=== PATIENT | male | born 1995 | race Caucasian/White ===

== ENCOUNTER 2019-08-24 17:31 | Inpatient (IN) ==
[2019-08-24] MEDS ORDERED: 0.9 % Sodium Chloride 500 ML IVC ONE (17:49)
[2019-08-24] MEDS ORDERED: *HR* FentaNYL (PF) 100 MCG/2 ML VIAL IVP ONE (17:52)
[2019-08-24 18:34] LABS: Basophils # 0.1 K/mcL (0.0-0.2); Basophils % 0.4 %; Eosinophils # 0.4 K/mcL (0.0-0.6); Eosinophils % 2.7 %; Hematocrit 43.8 % (37.5-50.1); Hemoglobin 13.7 g/dL (12.9-16.9); Immature Granulocytes % 0.7 % (0-4); Lymphocytes # 3.1 K/mcL (0.6-4.6); Lymphocytes % 21.1 %; Mean Corpuscular HGB Conc 31.3 g/dL (31.6-35.5); Mean Corpuscular Hemoglobin 27.7 pg (28.0-33.3); Mean Corpuscular Volume 88.7 fL (83.0-100.0); Mean Platelet Volume 9.6 fL (9.4-12.4); Monocytes # 1.5 K/mcL (0.0-1.3); Neutrophils # 9.5 K/mcL (1.6-8.9); Platelet Count 345 K/mcL (140-400); Red Blood Count 4.94 M/mcL (4.19-5.50); Red Cell Distribution Width 12.3 % (11.5-14.5); Segmented Neutrophils % 65.1 %; White Blood Count 14.6 K/mcL (4.3-11.1)
[2019-08-24 18:35] LABS: Bilirubin,Urine Negative (Negative); Blood,Urine Negative (Negative); Color,Urine Yellow (Yellow); Glucose,Urine (UA) Normal (Normal); Ketones,Urine Negative (Negative); Leukocyte Esterase,Urine Negative (Negative); Nitrite,Urine Negative (Negative); Protein,Urine Negative (Neg-Trace); Specific Gravity,Urine 1.013 (1.010-1.025)
[2019-08-24 18:40] LABS: Clarity,Urine Hazy (Clear)
[2019-08-24 18:58] LABS: BUN/Creatinine Ratio 9 (6-26); Blood Urea Nitrogen 12 mg/dL (6-20); Calcium 8.9 mg/dL (8.6-10.3); Carbon Dioxide 28 mEq/L (23-29); Chloride 97 mEq/L (98-107); Creatine Kinase 86 Units/L (30-223); Glucose 103 mg/dL (70-105); Osmolality,Calculated 280 (280-300); Potassium 3.7 mEq/L (3.5-5.1); Sodium 135 mEq/L (136-145); eGFR For African Americans > 60 (> 60); eGFR For Non-African Americans > 60 (> 60)
[2019-08-24 18:59] LABS: Troponin I < 0.03 ng/mL (< 0.04)
[2019-08-24] MEDS ORDERED: 0.9 % Sodium Chloride 1,000 ML IVC STA (19:10)
[2019-08-24] MEDS ORDERED: Ibuprofen 400 MG TABLET PO ONE (19:11)
[2019-08-24] MEDS ORDERED: cefTRIAXone 1,000 MG in Water for inj. (sterile) 10 ML IVP ONE (19:46)
[2019-08-24] MEDS ORDERED: Azithromycin 500 MG in 0.9 % Sodium Chloride 250 ML IVPB ONE (19:46)
[2019-08-25] MEDS ORDERED: Naloxone 0.4 MG/ML INJ IVP PRN (04:33)
[2019-08-25 05:06] LABS: Hematocrit 43.3 % (37.5-50.1); Hemoglobin 13.3 g/dL (12.9-16.9); Mean Corpuscular HGB Conc 30.7 g/dL (31.6-35.5); Mean Corpuscular Hemoglobin 27.4 pg (28.0-33.3); Mean Corpuscular Volume 89.1 fL (83.0-100.0); Mean Platelet Volume 9.5 fL (9.4-12.4); Platelet Count 318 K/mcL (140-400); Red Blood Count 4.86 M/mcL (4.19-5.50); Red Cell Distribution Width 12.3 % (11.5-14.5); White Blood Count 13.1 K/mcL (4.3-11.1)
[2019-08-25 05:25] LABS: BUN/Creatinine Ratio 12 (6-26); Blood Urea Nitrogen 13 mg/dL (6-20); Calcium 8.6 mg/dL (8.6-10.3); Carbon Dioxide 29 mEq/L (23-29); Chloride 104 mEq/L (98-107); Glucose 99 mg/dL (70-105); Osmolality,Calculated 288 (280-300); Potassium 3.8 mEq/L (3.5-5.1); Sodium 139 mEq/L (136-145); eGFR For African Americans > 60 (> 60); eGFR For Non-African Americans > 60 (> 60)
[2019-08-25] MEDS: cefTRIAXone 1,000 MG in Water for inj. (sterile) 10 ML IVP SCH (07:42)
[2019-08-25] MEDS ORDERED: Benzonatate 100 MG CAPSULE PO PRN (12:07)
[2019-08-25] MEDS: *HR* Enoxaparin 40 MG/0.4 ML SYRINGE SQ SCH (14:17)
[2019-08-25] MEDS ORDERED: Azithromycin 500 MG in 0.9 % Sodium Chloride 250 ML IVPB SCH (21:00)
[2019-08-26] MEDS: *HR* Enoxaparin 40 MG/0.4 ML SYRINGE SQ SCH (05:45)
[2019-08-26] MEDS ORDERED: Isovue-370 500 ML BOTTLE IVP ONE (07:03)
[2019-08-26] MEDS: cefTRIAXone 1,000 MG in Water for inj. (sterile) 10 ML IVP SCH (07:50)
[2019-08-26] MEDS: Acetaminophen 325 MG TABLET PO PRN ×2 (07:50→15:54)
[2019-08-26] MEDS: 0.9 % Sodium Chloride 1,000 ML IVC SCH ×2 (07:51→20:18)
[2019-08-26 09:51] LABS: BUN/Creatinine Ratio 9 (6-26); Blood Urea Nitrogen 10 mg/dL (6-20); Calcium 8.5 mg/dL (8.6-10.3); Carbon Dioxide 27 mEq/L (23-29); Chloride 102 mEq/L (98-107); Glucose 112 mg/dL (70-105); Osmolality,Calculated 282 (280-300); Potassium 3.5 mEq/L (3.5-5.1); Sodium 136 mEq/L (136-145); eGFR For African Americans > 60 (> 60); eGFR For Non-African Americans > 60 (> 60)
[2019-08-26 12:07] LABS: Adenovirus Not Detected (Not Detect); Bordetella Pertussis Not Detected (Not Detect); Chlamydophila pneumoniae Not Detected (Not Detect); Coronavirus 229E Not Detected (Not Detect); Coronavirus HKU1 Not Detected (Not Detect); Coronavirus NL63 Not Detected (Not Detect); Coronavirus OC43 Not Detected (Not Detect); Human Metapneumovirus Not Detected (Not Detect); Human Rhinovirus/Enterovirus Not Detected (Not Detect); Influenza A Subtype 2009 H1 Not Detected (Not Detect); Influenza B Not Detected (Not Detect); Mycoplasma pneumoniae Not Detected (Not Detect); Parainfluenza Virus 1 Not Detected (Not Detect); Parainfluenza Virus 2 Not Detected (Not Detect); Parainfluenza Virus 3 Not Detected (Not Detect); Parainfluenza Virus 4 Not Detected (Not Detect); Respiratory Syncytial Virus Not Detected (Not Detect)
[2019-08-26] MEDS ORDERED: *HR* Enoxaparin 40 MG/0.4 ML SYRINGE SQ SCH (12:08)
[2019-08-26] MEDS ORDERED: Azithromycin 250 MG TABLET PO SCH (21:00)
[2019-08-27] MEDS: *HR* Enoxaparin 40 MG/0.4 ML SYRINGE SQ SCH (05:46)
[2019-08-27] MEDS: cefTRIAXone 1,000 MG in Water for inj. (sterile) 10 ML IVP SCH (09:23)
[2019-08-27] MEDS: 0.9 % Sodium Chloride 1,000 ML IVC SCH (09:33)
[2019-08-27] MEDS ORDERED: Lidocaine 1% 20 ML MDV ONE (09:51)
[2019-08-27 11:37] LABS: Total Protein,Pleural Fluid 4.4 g/dL
[2019-08-27 13:44] LABS: Appearance of Pleural Fl Bloody (Clear)
[2019-08-27 13:51] LABS: Basophils,Pleural Fluid 0 %; Monocytes,Pleural Fluid 0 %
[2019-08-27] MEDS: Piperacillin/Tazobactam 3.375 GM in 0.9 % Sodium Chloride Mini Bag 100 ML IVPB SCH (18:13)
[2019-08-28] MEDS: Piperacillin/Tazobactam 3.375 GM in 0.9 % Sodium Chloride Mini Bag 100 ML IVPB SCH ×3 (01:19→18:10)
[2019-08-28 02:02] LABS: Basophils # 0.1 K/mcL (0.0-0.2); Basophils % 0.4 %; Eosinophils # 0.3 K/mcL (0.0-0.6); Eosinophils % 2.6 %; Hematocrit 36.7 % (37.5-50.1); Immature Granulocytes % 0.5 % (0-4); Lymphocytes # 2.6 K/mcL (0.6-4.6); Lymphocytes % 21.3 %; Mean Corpuscular HGB Conc 31.1 g/dL (31.6-35.5); Mean Corpuscular Hemoglobin 27.3 pg (28.0-33.3); Monocytes # 1.1 K/mcL (0.0-1.3); Monocytes % 8.8 %; Platelet Count 358 K/mcL (140-400); Red Blood Count 4.17 M/mcL (4.19-5.50); Red Cell Distribution Width 12.4 % (11.5-14.5); Segmented Neutrophils % 66.4 %
[2019-08-28 02:03] LABS: Hemoglobin 11.4 g/dL (12.9-16.9)
[2019-08-28 02:22] LABS: BUN/Creatinine Ratio 12 (6-26); Blood Urea Nitrogen 13 mg/dL (6-20); Calcium 8.4 mg/dL (8.6-10.3); Carbon Dioxide 26 mEq/L (23-29); Chloride 105 mEq/L (98-107); Glucose 100 mg/dL (70-105); Osmolality,Calculated 284 (280-300); Sodium 137 mEq/L (136-145); eGFR For African Americans > 60 (> 60); eGFR For Non-African Americans > 60 (> 60)
[2019-08-28] MEDS: *HR* Enoxaparin 40 MG/0.4 ML SYRINGE SQ SCH (05:42)
[2019-08-28] MEDS ORDERED: *HR* Propofol 200 MG/20 ML VIAL IVP ONE ×2 (13:19→13:24)
[2019-08-28] MEDS ORDERED: *HR* Midazolam HCl 2 MG/2 ML VIAL ONE (13:19)
[2019-08-28] MEDS ORDERED: *HR* FentaNYL (PF) 100 MCG/2 ML VIAL ONE ×2 (13:19→15:02)
[2019-08-28] MEDS ORDERED: Famotidine 20 MG/2 ML VIAL ONE (14:50)
[2019-08-28] MEDS ORDERED: Acetaminophen IV 1,000 MG/100 ML INFUS..BTL ONE (14:50)
[2019-08-28] MEDS ORDERED: Pregabalin 75 MG CAPSULE PO ONE (15:40)
[2019-08-28] MEDS ORDERED: *HR* HYDROmorphone 2 MG TABLET PO PRN (15:40)
[2019-08-28] MEDS ORDERED: *HR* OxyCODONE Immed Rel 5 MG TABLET PO PRN (15:40)
[2019-08-28] MEDS ORDERED: *HR* Labetalol 20 MG/4 ML SYRINGE IVP PRN (15:40)
[2019-08-28] MEDS ORDERED: *HR* Promethazine 25 MG/ML VIAL IVP PRN (15:40)
[2019-08-28] MEDS ORDERED: Dexamethasone 4 MG/ML VIAL ONE ×2 (15:46→15:52)
[2019-08-28] MEDS ORDERED: Dexamethasone 4 MG/ML VIAL IVP ONE (15:46)
[2019-08-28] MEDS ORDERED: Ondansetron 4 MG/2 ML VIAL ONE ×2 (15:46→15:52)
[2019-08-28] MEDS ORDERED: *HR* Promethazine 25 MG/ML VIAL ONE (15:46)
[2019-08-28] MEDS: *HR* HYDROmorphone (PF) 1 MG/ML SYRINGE IVP PRN ×3 (15:50→16:34)
[2019-08-28] MEDS ORDERED: Ketorolac 30 MG/ML VIAL ONE (15:56)
[2019-08-28] MEDS ORDERED: Naloxone 0.4 MG/ML INJ IVP PRN (17:13)
[2019-08-28] MEDS ORDERED: Ondansetron 4 MG/2 ML VIAL IVP PRN (17:13)
[2019-08-28] MEDS ORDERED: 0.9 % Sodium Chloride 1,000 ML IVC SCH (17:13)
[2019-08-28] MEDS: Ipratropium/Albuterol Neb 3 ML IH SCH ×3 (18:44→23:44)
[2019-08-28] MEDS: Sennosides/Docusate Sodium TABLET PO SCH (20:11)
[2019-08-28] MEDS: Gabapentin 300 MG CAPSULE PO SCH (20:11)
[2019-08-28] MEDS: *HR* Heparin 5,000 UNIT/ML VIAL SQ SCH (20:11)
[2019-08-28] MEDS: Famotidine 20 MG TABLET PO SCH (20:11)
[2019-08-29] MEDS: *HR* HYDROcodone/Acet 5/325 mg TABLET PO PRN ×3 (00:10→21:27)
[2019-08-29] MEDS: Piperacillin/Tazobactam 3.375 GM in 0.9 % Sodium Chloride Mini Bag 100 ML IVPB SCH ×2 (01:02→09:20)
[2019-08-29 02:45] LABS: Hemoglobin 12.7 g/dL (12.9-16.9); Mean Corpuscular Hemoglobin 27.3 pg (28.0-33.3); Mean Platelet Volume 10.7 fL (9.4-12.4); Red Blood Count 4.65 M/mcL (4.19-5.50); Red Cell Distribution Width 12.4 % (11.5-14.5)
[2019-08-29 02:47] LABS: Basophils % 0.2 %; Hematocrit 39.7 % (37.5-50.1); Immature Granulocytes % 0.9 % (0-4); Immature Platelets 4.2 % (1.1-6.1); Lymphocytes # 1.2 K/mcL (0.6-4.6); Lymphocytes % 8.1 %; Mean Corpuscular Volume 85.4 fL (83.0-100.0); Monocytes % 6.4 %; Platelet Count 334 K/mcL (140-400); Segmented Neutrophils % 84.4 %
[2019-08-29 02:48] LABS: Neutrophils # 12.7 K/mcL (1.6-8.9)
[2019-08-29] MEDS: Ipratropium/Albuterol Neb 3 ML IH SCH ×6 (03:22→23:28)
[2019-08-29 05:10] LABS: BUN/Creatinine Ratio 12 (6-26); Blood Urea Nitrogen 14 mg/dL (6-20); Calcium 8.9 mg/dL (8.6-10.3); Carbon Dioxide 27 mEq/L (23-29); Chloride 100 mEq/L (98-107); Glucose 132 mg/dL (70-105); Osmolality,Calculated 288 (280-300); Potassium 4.6 mEq/L (3.5-5.1); Sodium 138 mEq/L (136-145); eGFR For African Americans > 60 (> 60); eGFR For Non-African Americans > 60 (> 60)
[2019-08-29] MEDS: *HR* Heparin 5,000 UNIT/ML VIAL SQ SCH ×3 (05:43→21:09)
[2019-08-29] MEDS ORDERED: *HR* Enoxaparin 40 MG/0.4 ML SYRINGE SQ SCH (06:00)
[2019-08-29] MEDS: Gabapentin 300 MG CAPSULE PO SCH ×3 (09:20→21:09)
[2019-08-29] MEDS: Famotidine 20 MG TABLET PO SCH ×2 (09:20→21:09)
[2019-08-29] MEDS: Sennosides/Docusate Sodium TABLET PO SCH ×2 (09:20→21:09)
[2019-08-29] MEDS ORDERED: Aminoglycoside Consult 1 EACH MC ONE (11:45)
[2019-08-29] MEDS: Ampicillin/Sulbactam 3,000 MG in 0.9 % Sodium Chloride Mini Bag 100 ML IVPB SCH ×2 (11:51→17:59)
[2019-08-30] MEDS: Ampicillin/Sulbactam 3,000 MG in 0.9 % Sodium Chloride Mini Bag 100 ML IVPB SCH ×2 (00:26→05:44)
[2019-08-30] MEDS: Ipratropium/Albuterol Neb 3 ML IH SCH ×3 (04:04→11:45)
[2019-08-30] MEDS: *HR* Heparin 5,000 UNIT/ML VIAL SQ SCH (05:43)
[2019-08-30] MEDS: *HR* HYDROcodone/Acet 5/325 mg TABLET PO PRN (05:43)
[2019-08-30] MEDS: Sennosides/Docusate Sodium TABLET PO SCH (08:27)
[2019-08-30] MEDS: Gabapentin 300 MG CAPSULE PO SCH (08:27)
[2019-08-30] MEDS: Famotidine 20 MG TABLET PO SCH (08:27)
[2019-08-30 09:39] LABS: Basophils # 0.1 K/mcL (0.0-0.2); Basophils % 0.6 %; Eosinophils # 0.3 K/mcL (0.0-0.6); Eosinophils % 2.1 %; Hematocrit 38.5 % (37.5-50.1); Hemoglobin 11.8 g/dL (12.9-16.9); Immature Granulocytes % 0.6 % (0-4); Lymphocytes # 3.3 K/mcL (0.6-4.6); Mean Corpuscular HGB Conc 30.6 g/dL (31.6-35.5); Mean Corpuscular Hemoglobin 27.4 pg (28.0-33.3); Mean Corpuscular Volume 89.3 fL (83.0-100.0); Mean Platelet Volume 9.3 fL (9.4-12.4); Monocytes # 0.7 K/mcL (0.0-1.3); Neutrophils # 7.4 K/mcL (1.6-8.9); Platelet Count 413 K/mcL (140-400); Red Blood Count 4.31 M/mcL (4.19-5.50); Red Cell Distribution Width 12.5 % (11.5-14.5); Segmented Neutrophils % 62.7 %; White Blood Count 11.7 K/mcL (4.3-11.1)
[2019-08-30 09:59] LABS: BUN/Creatinine Ratio 13 (6-26); Blood Urea Nitrogen 13 mg/dL (6-20); Calcium 8.5 mg/dL (8.6-10.3); Carbon Dioxide 28 mEq/L (23-29); Chloride 103 mEq/L (98-107); Glucose 136 mg/dL (70-105); Osmolality,Calculated 296 (280-300); Sodium 142 mEq/L (136-145); eGFR For African Americans > 60 (> 60); eGFR For Non-African Americans > 60 (> 60)
[2019-08-30 11:04] VITALS: BP 128/87
== END 2019-08-30 11:46 | disposition home or self-care (01) | DRG 139 ==
LOC: EMEROOARM 17:31 → 2NENU 17:31 → EMEROOARM 21:12 → SUATTDRO 21:14 → 2NENU 22:05 → 3BNU 08-25 18:47 → SUATTDRO 08-26 16:51 → 3NENU 08-28 17:05
PROVIDERS: ADMIT Family Medicine; ATTEND Internal Medicine